=== PATIENT | male | born 1935 | race African-American/Black ===

== ENCOUNTER 2016-12-14 09:17 | Observation (INO) | payer MEDICARE, MEDICAID ==
[~2016-12-14] VITALS: Ht 167.6 cm; Wt 71.7 kg
[~2016-12-14 09:17] MED LIST: AMLO2.5T45 PO
[2016-12-14] MEDS ORDERED: MORPHINE SULFATE 4 MG/ML CPJ (NOT FOR IM USE) IV STA (09:39)
[2016-12-14] MEDS ORDERED: ONDANSETRON HCL 4MG/2ML VIAL IV STA (09:39)
[2016-12-14 10:04] LABS: BASOPHILS % 0.5 % (0.0-2.0); EOSINOPHILS % 3.6 % (0.0-5.0); HEMATOCRIT. 35.9 % (42.0-52.0); HEMOGLOBIN. 12.6 g/dL (14.0-18.0); MEAN CORPUSCULAR HEMOGLOBIN 34.2 pg (28.0-32.0); MEAN CORPUSCULAR HGB CONC 34.9 g/dL (31.0-37.0); MEAN CORPUSCULAR VOLUME 97.8 fL (80.0-94.0); MEAN PLATELET VOLUME 7.6 fl (7.4-10.4); MONOCYTES % 11.1 % (2.0-8.0); NEUTROPHILS % 50.8 % (40.0-76.0); PLATELET 138 x1000/uL (130-400); RED BLOOD CELL COUNT 3.68 mill/uL (4.7-6.1); RED CELL DISTRIBUTION WIDTH 14.6 % (11.6-14.6)
[2016-12-14 10:09] LABS: INR 1.1; PARTIAL THROMBOPLASTIN TIME 26.4 sec (24.0-34.0); PROTHROMBIN TIME 11.4 sec
[2016-12-14 10:14] LABS: ANION GAP 11; CALCIUM 9.1 mg/dL (8.5-10.1); CARBON DIOXIDE 35 mEq/L (21-32); CHLORIDE 96 mEq/L (98-107); INDEX HEMOLYSI 1 (1-3); INDEX ICTERIC 1 (1-4); INDEX LIPEMIC 1 (1-3); UREA NITROGEN BLOOD 25 mg/dL (7-21); eGFR 12 mL/min (>60)
[2016-12-14 10:16] LABS: TROPONIN I < 0.02 ng/mL (0.00-0.04)
[2016-12-14] MEDS ORDERED: ASPI81TA2 PO (15:59)
[2016-12-14] MEDS ORDERED: TRAZ-132 PO (15:59)
[2016-12-14] MEDS ORDERED: LIDO30CR TP (15:59)
[2016-12-14] MEDS ORDERED: ACET650S25 PO (15:59)
[2016-12-14] MEDS ORDERED: LIP40 PO (15:59)
[2016-12-14] MEDS ORDERED: CLON0.1T PO (15:59)
[2016-12-14] MEDS ORDERED: NIFE60TA35 PO (15:59)
[2016-12-14] MEDS ORDERED: LINA72CA PO (15:59)
[2016-12-14] MEDS ORDERED: TAMS-11 PO (15:59)
[2016-12-14] MEDS ORDERED: SORB1SOL2 PO (15:59)
[2016-12-14] MEDS ORDERED: ACETAMINOPHEN 650MG/20.3ML UDC PO PRN (16:15)
[2016-12-14] MEDS ORDERED: ENOXAPARIN 40MG/0.4ML SYR SUBCUT SCH (16:15)
[2016-12-14] MEDS ORDERED: CLONIDINE 0.1MG TABLET PO PRN (16:15)
[2016-12-14] MEDS ORDERED: SORBITOL 70% SOLN 30ML PO PRN (16:15)
[2016-12-14] MEDS: ASPIRIN 81MG TABLET PO SCH (19:15)
[2016-12-14] MEDS: HEPARIN 5000 UNITS/ML VIAL SUBCUT SCH (19:16)
[2016-12-14] MEDS ORDERED: ATORVASTATIN CALCIUM 40MG TABLET PO SCH (21:00)
[2016-12-14] MEDS ORDERED: TRAZODONE HCL 100MG TABLET PO SCH (21:00)
[2016-12-14] MEDS ORDERED: TAMSULOSIN HCL 0.4MG SR CAPSULE PO SCH (21:00)
[2016-12-14] MEDS: SODIUM CHLORIDE 0.9% INJ 3ML FLUSH IVF SCH (21:04)
[2016-12-15] MEDS: HEPARIN 5000 UNITS/ML VIAL SUBCUT SCH ×2 (05:52→18:00)
[2016-12-15] MEDS: SODIUM CHLORIDE 0.9% INJ 3ML FLUSH IVF SCH ×2 (05:52→14:00)
[2016-12-15 09:40] LABS: BASOPHILS % 0.5 % (0.0-2.0); EOSINOPHILS % 2.8 % (0.0-5.0); HEMATOCRIT. 34.8 % (42.0-52.0); LYMPHOCYTES % 34.9 % (20.0-50.0); MEAN CORPUSCULAR HEMOGLOBIN 34.2 pg (28.0-32.0); MEAN CORPUSCULAR HGB CONC 34.5 g/dL (31.0-37.0); MEAN CORPUSCULAR VOLUME 98.9 fL (80.0-94.0); MEAN PLATELET VOLUME 7.5 fl (7.4-10.4); MONOCYTES % 7.6 % (2.0-8.0); NEUTROPHILS % 54.2 % (40.0-76.0); PLATELET 161 x1000/uL (130-400); RED BLOOD CELL COUNT 3.52 mill/uL (4.7-6.1); RED CELL DISTRIBUTION WIDTH 14.5 % (11.6-14.6); WHITE BLOOD COUNT 4.7 x1000/uL (4.5-11.0)
[2016-12-15 10:11] LABS: ANION GAP 12; CALCIUM 9.2 mg/dL (8.5-10.1); CARBON DIOXIDE 33 mEq/L (21-32); CHLORIDE 96 mEq/L (98-107); INDEX HEMOLYSI 1 (1-3); INDEX ICTERIC 1 (1-4); INDEX LIPEMIC 1 (1-3); TROPONIN I < 0.02 ng/mL (0.00-0.04); UREA NITROGEN BLOOD 42 mg/dL (7-21); eGFR 9 mL/min (>60)
[2016-12-15] MEDS: ASPIRIN 81MG TABLET PO SCH (10:41)
[2016-12-15 20:00] VITALS: BP 101/69
== END 2016-12-15 23:00 ==
LOC: ER 09:23 → 7WST 11:24 → INTOOBSV 11:24
PROVIDERS: ADMIT Ophthalmology; ATTEND Ophthalmology
DX: R07.89 Other chest pain (principal); I10 Essential (primary) hypertension; E78.5 Hyperlipidemia, unspecified; E78.00 Pure hypercholesterolemia, unspecified; I12.0 Hypertensive chronic kidney disease with stage 5 chronic kidney disease or end stage renal disease; N18.6 End stage renal disease; K75.9 Inflammatory liver disease, unspecified; Z86.73 Personal history of transient ischemic attack (TIA), and cerebral infarction without residual deficits; Z87.891 Personal history of nicotine dependence; Z99.2 Dependence on renal dialysis
CPT/HCPCS: 36415; 71010; 80048; 84443; 84484; 85025; 85610; 85730; 93005; 93971; 96372; 99285; G0378; J1644

== ENCOUNTER 2019-02-10 13:18 | Emergency (ER) | payer MEDICARE, MEDICAID ==
[~2019-02-10] VITALS: Ht 177.8 cm; Wt 69.0 kg
[~2019-02-10 13:18] MED LIST changes: +ACET650S25 PO; -AMLO2.5T45 PO; +ASPI-1160 PO; +CLON0.1T PO; +LIDO30CR TP; +LINA72CA PO; +LIP40 PO; +SORB1SOL2 PO; +TAMS-11 PO; +TRAZ-213 PO; +VENL150C2 PO
[2019-02-10] MEDS ORDERED: ASPIRIN 81MG TABLET PO ONE (13:45)
[2019-02-10 15:12] LABS: BASOPHILS % 1.1 % (0.0-2.0); EOSINOPHILS % 3.4 % (0.0-5.0); HEMATOCRIT. 37.6 % (42.0-52.0); HEMOGLOBIN. 13.3 g/dL (14.0-18.0); LYMPHOCYTES % 36.2 % (20.0-50.0); MEAN CORPUSCULAR HEMOGLOBIN 35.8 pg (28.0-32.0); MEAN CORPUSCULAR VOLUME 101.5 fL (80.0-94.0); MEAN PLATELET VOLUME 8.3 fl (7.4-10.4); MONOCYTES % 8.9 % (2.0-8.0); NEUTROPHILS % 50.4 % (40.0-76.0); PLATELET 189 x1000/uL (130-400); RED BLOOD CELL COUNT 3.71 mill/uL (4.7-6.1); RED CELL DISTRIBUTION WIDTH 13.4 % (11.6-14.6)
[2019-02-10 15:20] LABS: CHLORIDE 100 mEq/L (98-107)
[2019-02-10] MEDS ORDERED: SORBITOL 70% SOLN 30ML PO PRN (18:00)
[2019-02-10] MEDS ORDERED: ATORVASTATIN CALCIUM 40MG TABLET PO SCH (21:00)
[2019-02-10] MEDS ORDERED: TERAZOSIN HCL 5MG CAPSULE PO SCH (21:00)
[2019-02-10 22:30] VITALS: BP 124/75
[2019-02-11] MEDS ORDERED: NIFEDIPINE XL 90MG TAB PO SCH (09:00)
[2019-02-11] MEDS ORDERED: DOCUSATE SODIUM 100MG CAPSULE PO SCH (09:00)
== END 2019-02-10 22:30 ==
LOC: ER 13:51
DX: R07.89 Other chest pain (principal)
CPT/HCPCS: 36415; 71045; 83880; 84484; 93005; 99284